=== PATIENT | female | born 1990 | race Caucasian/White ===

== ENCOUNTER 2018-11-17 16:38 | Inpatient (IN) | payer OTHER ==
[~2018-11-17] VITALS: Ht 177.8 cm; Wt 66.9 kg
--- NOTE | ~2018-11-17 | EKG ---
[place], [place] ELECTROCARDIOGRAM REPORT NAME: ALCIDES HAWKINS UNIT #: [id number] ROOM: 532 DOCTOR: ROXANNA DRAFT REPORT BIRTHDATE: [birth year] [facility] Test Date: 2018-11-17 Test Time: 18:56:50 Pat Name: ALCIDES HAWKINS Department: Room: 532 1 Gender: F C D Area Supervisor: Mabel Engle : 1990 Requested By: ARTI RAVI Order Number: [id number] Reading MD: Cong Srivastava MD Measurements Intervals [place] Rate: 71 P: 14 [place]: 116 QRS: 44 QRSD: 79 T: -8 QT: 395 QTc: 430 Interpretive Statements Sinus rhythm Borderline short [place] interval Borderline repolarization abnormality Electronically Signed On 11-18-2018 11:34:49 PDT by Cong Srivastava MD CM:[id number]:ELECTROCARDIOGRAM REPORT [id number] ARTI HOLLIDAY DRAFT REPORT ARTI RAVI DO
--- NOTE | 2018-11-17 17:09 | NUR ---
PATIENT MEETS [facility]. CINA=[id number]. [facility] STAFF WILL PROVIDE PATIENT WITH REFERRAL OPTIONS. PATIENT WANTS OUTPATIENT TREATMENT, HOWEVER IS UNSURE ON FACILITY. [facility] STAFF WILL FOLLOW BACK UP WITH PATIENT TO DISCUSS DISCHARGE PLAN. MIRNA MARTINEZ B.A. BODY SPECIALIST
[2018-11-17 17:35] VITALS: BP 132/93
--- NOTE | 2018-11-17 17:35 | NUR ---
28 year old FEMALE admitted to room # 532 for stabilization. 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 Compliant with admission procedure. Patient denies any anxiety, but is unable to sit still, taps toes to floor continuously, looks about room, unable to focus eyes on nurse during interview. See assessment forms for additional information about patient status.
--- NOTE | 2018-11-17 18:09 | NUR ---
PT TAKES NO HOME MEDS AND WISHES TO USE OUR PHARMACY PRIOR TO D/C FOR ANY D/C PRESCRIPTIONS. .
[2018-11-17 18:43] LABS: BILIRUBIN NEGATIVE (NEGATIVE); BLOOD NEGATIVE (NEGATIVE); CLARITY SL CLOUDY (CLEAR); COLOR YELLOW (YELLOW); GLUCOSE NEGATIVE (NEGATIVE); KETONE NEGATIVE (NEGATIVE); LEUKO ESTERASE NEGATIVE (NEGATIVE); NITRITE NEGATIVE (NEGATIVE); SPECIFIC GRAVITY 1.025 (1.005-1.030); UROBILINOGEN 0.2 E.U./dl (0.2-1.0)
[2018-11-17 18:57] LABS: BACTERIA TRACE; MUCOUS 2+; WBC 0-2 wbc/hpf (0-5)
[2018-11-17 19:04] LABS: BASO % 0.3 % (0.0-1.0); EOS # 0.1 10*3/uL (0.0-0.4); EOS % 0.8 % (1.0-4.0); HEMOGLOBIN 15.6 g/dl (12.0-16.0); LYMPH # 3.6 10*3/uL (1.3-4.4); LYMPH % 30.3 % (27.0-41.0); MEAN CELL VOLUME 94.9 fl (81.0-99.0); MEAN CORPUSCULAR HGB 30.8 pg (27.0-31.0); MEAN CORPUSCULAR HGB CONC 32.5 g/dl (33.0-37.0); MONO # 0.7 10*3/uL (0.1-1.0); MONO % 5.5 % (3.0-9.0); NEUT # 7.5 10*3/uL (2.3-7.9); NEUT % 62.8 % (47.0-73.0); PLATELET COUNT AUTOMATED 279 10*3/uL (130-400); RED BLOOD COUNT 5.06 10*6/uL (4.10-5.10); RED CELL DISTRI WIDTH 12.7 % (0-14.5)
[2018-11-17 19:21] LABS: ALKALINE PHOSPHATASE 77 U/L (45-117); BUN 15 mg/dl (7-24); CHLORIDE 106 mmol/L (98-107); CREATININE 0.84 mg/dL (0.55-1.02); POTASSIUM 3.1 mmol/L (3.5-5.1); SGOT/AST 11 IU/L (3-35); SGPT/ALT 28 U/L (12-78); SODIUM 139 mmol/L (136-145); TOTAL PROTEIN 7.7 gm/dL (6.4-8.2)
[2018-11-17 19:26] LABS: ETHYL ALCOHOL < 3.0 mg/dl (<3)
[2018-11-17 19:32] LABS: URINE AMPHETAMINES < 1000 (1000ng/ml); URINE BARBITURATES < 200 (200ng/ml); URINE BENZODIAZEPINES > 200 (200ng/ml); URINE CANNABINOIDS (THC) > 50 (50ng/ml); URINE COCAINE > 300 (300ng/ml); URINE METHADONE < 300 (300ng/ml); URINE OPIATES < 300 (300ng/ml)
[2018-11-17 19:36] LABS: URINE PHENCYCLIDINE < 25 (25ng/ml)
[2018-11-17 20:00] VITALS: BP 111/66
--- NOTE | 2018-11-17 20:16 | NUR ---
PATIENT MEDICATED WITH REQUIP , ROBAXIN AND SENNAKOT PER PRN ORDER FOR S/S OF WITHDRAWAL. SEE EMAR. REINFORCED USE OF CALL LIGHT.
--- NOTE | 2018-11-17 22:25 | NUR ---
PATIENT MEDICATED WITH VISTARIL AND TRAZODONE PER PRN ORDER FOR ANXIETY AND INABILITY TO SLEEP. SEE EMAR. REINFORCED USE OF CALL LIGHT.
--- NOTE | 2018-11-17 23:44 | NUR ---
Patient resting. Responding to scheduled medications with fewer complaints of pain and anxiety.
[2018-11-18] VITALS: BP 90/70
[2018-11-18 08:00] VITALS: BP 115/79
--- NOTE | 2018-11-18 09:18 | NUR ---
PT AWAKE . EATING BREAKFAST. PT IS ANXIOUS. C/O "PAIN ALL OVER",STOMACH/LEG CRAMPS AND IS DIAPHORETIC.ROBAXIN 750 MG AND REQUIP 0.5 MG GIVEN PER MAR. EDUCATION PROVIDED REGARDING UTILIZING PRN MEDS.DENIES CP.DENIES SOB. RESPS EASY ON RA.CALL LIGHT IN REACH.
--- NOTE | 2018-11-18 10:15 | NUR ---
BENTYL 20 MG AND TYLENOL 325 MG GIVEN PER PT REQUEST.
[2018-11-18 12:00] VITALS: BP 100/78
--- NOTE | 2018-11-18 12:23 | NUR ---
NOTIFIED DR ACOSTA OF PT C/O [facility]ILLS. PT IS SOAKED FROM DIAPHORESIS.FINE TREMORS NOTED.INITIAL BP 91/57 PER AUTOMATIC BP. MANUAL RECHECK BY THIS RN 100/78 MANUALLY.
--- NOTE | 2018-11-18 14:33 | NUR ---
PATIENT IS STILL UNDECIDED ON WHAT SHE WANTS TO DO FOR HER AFTERCARE PLAN. PATIENT IS REQUESTING A LIST OF AFTERCARE RESOURCES. MIRNA MARTINEZ B.A. ELECTRICAL CALIBRATOR
[2018-11-18 16:00] VITALS: BP 97/61
--- NOTE | 2018-11-18 16:48 | NUR ---
ROBAXIN 750 MG,IBUPROFEN 600 MG,AND VISTARIL 50 MG GIVEN FOR C/O ANXIETY, RESTLESSNESS, AND CRAMPS TO BLE.ENCOURAGED PT ORDER DINNER. PT HAS HAD POOR APPETITE TODAY.RESPS EASY ON RA. CALL LIGHT IN REACH.
[2018-11-18 20:00] VITALS: BP 110/65
--- NOTE | 2018-11-18 22:55 | NUR ---
PATIENT MEDICATED WITH TRAZODONE, VISTARIL, REQUIP AND ROBAXIN PER PRN ORDER FOR S/S OF WITHDRAWAL. SEE EMAR. REINFORCED USE OF CALL LIGHT.
[2018-11-19] VITALS: BP 86/51
[2018-11-19 08:00] VITALS: BP 97/59
--- NOTE | 2018-11-19 09:11 | NUR ---
ASSESSMENT COMPLETE, PT VERY SLEEPY, DIAPHORETIC. PT WOKE TO TOUCH, SHOOK HEAD NO AND MUMBLED NO WHEN ASKED IF NEEDED ANYTHING AT THIS TIME. PT ROLLED FROM BACK TO SIDE AFTER ASSESSMENT AND WENT BACK TO SLEEP. WILL CONTIUE TO MONITOR FOR NEEDS.
--- NOTE | 2018-11-19 10:15 | NUR ---
PT COMPLAIN OF WITHDRAW SYMPTOMS, PRN MEDICATIONS GIVEN. PT STATES NO OTHER NEEDS AT THIS TIME
--- NOTE | 2018-11-19 10:16 | NUR ---
NOTIFIED DR. LOGAN THAT PATIETN POTASSIUM LEVEL WAS FROM SEVERAL DAYS AGO AND THAT IT APPEARS THAT LOW POTASSIUM WAS PO REPLACED ON 11/17. OKAY TO NOT GIVE ORDERED POSASSIUM THIS MORNING.
[2018-11-19 12:00] VITALS: BP 102/64
--- NOTE | 2018-11-19 15:15 | NUR ---
PT REQUESTED TO SIGN OUT AMA, WAITING FOR RIDE
--- NOTE | 2018-11-19 15:48 | NUR ---
DR. LOGAN AND TRANSPORTATION PLANNING TECHNICIAN AWARE THAT PATIENT LEFT AMA
== END 2018-11-19 15:19 | disposition left against medical advice (07) | DRG 894 ==
LOC: 5E 16:38
PROVIDERS: Internal Medicine; ADMIT Internal Medicine
DX: F11.23 Opioid dependence with withdrawal (principal); G47.00 Insomnia, unspecified; E87.6 Hypokalemia; F13.10 Sedative, hypnotic or anxiolytic abuse, uncomplicated; F14.10 Cocaine abuse, uncomplicated; Z53.21 Procedure and treatment not carried out due to patient leaving prior to being seen by health care provider; F17.210 Nicotine dependence, cigarettes, uncomplicated; G25.81 Restless legs syndrome; R61 Generalized hyperhidrosis; Z71.6 Tobacco abuse counseling; Z83.49 Family history of other endocrine, nutritional and metabolic diseases; Z83.3 Family history of diabetes mellitus